=== PATIENT | female | born 1990 | race Caucasian/White ===

== ENCOUNTER 2019-07-01 14:50 | Emergency (ER) | payer MEDICAID, OTHER ==
[~2019-07-01] VITALS: Ht 170.2 cm; Wt 84.1 kg
[~2019-07-01 14:50] MED LIST: GABA-532 PO; METH4TAB81 PO
[2019-07-01 15:15] VITALS: BP 104/70
[2019-07-01] MEDS ORDERED: TETanus/Pertussis (Acell)/Diphther VAC/PF (Tdap-Adult) 0.5ml syringe IMVAC ONE (15:20)
== END 2019-07-01 15:31 | disposition home or self-care (01) ==
LOC: ER 14:50
DX: S91.311A Laceration without foreign body, right foot, initial encounter (principal); Z79.899 Other long term (current) drug therapy; W26.8XXA Contact with other sharp object(s), not elsewhere classified, initial encounter; Y93.89 Activity, other specified; Y92.89 Other specified places as the place of occurrence of the external cause; Y99.8 Other external cause status
CPT/HCPCS: 90471; 90715; 99283